=== PATIENT | female | born 1990 | race Caucasian/White ===

== ENCOUNTER 2018-07-04 00:04 | Day surgery (SDC) | payer OTHER ==
[~2018-07-04] VITALS: Ht 162.6 cm; Wt 59.4 kg
[2018-07-04] VITALS (7 sets, daily range): BP systolic 98–130; BP diastolic 61–87
[2018-07-04] MEDS ORDERED: LIDOCAINE MPF 1% 5 ML VIAL ONE (06:54)
[2018-07-04] MEDS ORDERED: PROPOFOL EMUL(*) 10MG/ML 20 ML 40 ML ONE (06:54)
[2018-07-04] MEDS ORDERED: GLYCOPYRROLATE 0.2MG/ML 1 ML INJ ONE (07:13)
[2018-07-04] MEDS ORDERED: LIDOCAINE/SOD BICARB 8.4% SYR ID ONE (07:20)
[2018-07-04] MEDS ORDERED: NORMOSOL R SOLN(*) 1000 ML BAG 1,000 ML IV PRN (07:20)
--- NOTE | 2018-07-04 08:27 | Short(Outpt) Discharge Summary ---
Discharge Summary Reason for Hosp/Final Diag: (1) GERD (gastroesophageal reflux disease) Hospital Course & Plan: pt presented for egd. she tolerated the procedure well. path pending. she will be discharged home when criteria met. Departure Discharge to: Home Discharge Instructions Home Meds No Active Prescriptions or Reported Meds Diet: Regular Activity: As Tolerated Special Instructions: we will call you in 10 days with biopsy results. TANNER AQUINO July 04, 2018 08:27
--- NOTE | 2018-07-04 11:15 | NUR ---
0820- PT. RECEIVED FROM THE OR VIA STRETCHER WITH THE SIDERAILS UP. SBAR RECEIVED FROM BONNY ANTHONY AND DR. PHILLIPS. SEE ADMISSIONS ASSESSMENT. 0843- PT. AWAKE. 0847- PT. RETURNED TO ROOM AIR. 0853- PT. REPORTS HAVING TO USE THE BATHROOM SO ORTHOSTATICS PREFORMED. 0857- PT. ORTHOSTATICS RIGHT ON THE EDGE OF BEING OVER -20% BUT STATES NO LIGHTHEADED OR DIZZY SPELLS SO I ALLOWED HER TO USE THE BATHROOM. 0902- PT. RETURNED FROM THE BATHROOM AND I REPEATED HER ORTHOSTATICS AND THEY WERE RIGHT IN THE OKAY RANGE. 0925- WENT OVER DISCHARGE INSTRUCTIONS WITH PT. AND . PT. STATED UNDERSTANDING AND ALL QUESTIONS ANSWERED. 0929- PT. ACCOMPANIED OUT TO VEHICLE BY MICHAELLE ANTHONY AND .
== END 2018-07-04 09:29 | disposition home or self-care (01) ==
LOC: OR 00:04
PROVIDERS: ATTEND Surgery
DX: K29.70 Gastritis, unspecified, without bleeding (principal)
CPT/HCPCS: 43239; 81025; 87077; 88305; 88313; 88342; J2001; J2704; J3490